=== PATIENT | female | born 1935 | race Caucasian/White ===

== ENCOUNTER → 2020-11-28 | Outpatient (CLI) | payer OTHER, BC | LOC: MRI 08:42 | PROVIDERS: ATTEND Internal Medicine | DX: I63.89 Other cerebral infarction (principal); G31.9 Degenerative disease of nervous system, unspecified; R42 Dizziness and giddiness; E04.1 Nontoxic single thyroid nodule ==

== ENCOUNTER → 2020-11-29 | Outpatient (CLI) | payer OTHER, BC | LOC: SJCVCIMAG 11:12 | PROVIDERS: ATTEND Internal Medicine | DX: G45.9 Transient cerebral ischemic attack, unspecified (principal); I63.9 Cerebral infarction, unspecified ==

== ENCOUNTER → 2020-12-31 | Outpatient (CLI) | payer OTHER, BC | LOC: SJCVC 13:00 | PROVIDERS: ATTEND Internal Medicine | DX: I49.8 Other specified cardiac arrhythmias (principal); I63.9 Cerebral infarction, unspecified; E78.5 Hyperlipidemia, unspecified; R42 Dizziness and giddiness; Z86.19 Personal history of other infectious and parasitic diseases; Z79.899 Other long term (current) drug therapy; Z86.73 Personal history of transient ischemic attack (TIA), and cerebral infarction without residual deficits; Z87.891 Personal history of nicotine dependence ==